=== PATIENT | male | born 1990 | race Caucasian/White ===

== ENCOUNTER → 2021-06-11 | Outpatient (CLI) | payer BC ==
--- NOTE | 2021-06-11 15:57 | XR ---
EXAMINATION TYPE: XR wrist complete BILATERAL DATE OF EXAM: 06/11/2021 CLINICAL HISTORY: pain TECHNIQUE: Frontal, lateral and oblique images of the right wrist are obtained. COMPARISON: None. FINDINGS: There is no acute fracture/dislocation evident. The joint spaces appear within normal limits. The o verlying soft tissue appears unremarkable. IMPRESSION: There is no acute fracture or dislocation seen. ICD 10 NO FRACTURE, INITIAL EVALUATION EXAMINATION TYPE: XR wrist complete BILATERAL DATE OF EXAM: 06/11/2021 CLINICAL HISTORY: pain TECHNIQUE: Frontal, lateral and oblique images of the left wrist are obtained. COMPARISON: None. FINDINGS: There is no acute fracture/dislocation evident. The joint spaces appear within normal gross its. The overlying soft tissue appears unremarkable.
== END | disposition home or self-care (01) ==
LOC: RADXRYALE 15:35
PROVIDERS: ATTEND Internal Medicine
DX: M25.531 Pain in right wrist (principal); M25.532 Pain in left wrist